=== PATIENT | male | born 1995 | race African-American/Black ===

== ENCOUNTER 2019-02-02 17:39 | Emergency (ER) | payer OTHER, SELFPAY ==
--- NOTE | 2019-02-02 20:41 | RAD REPORT ---
EXAM DESCRIPTION: US - BREAST/AXILLA, LIMITED - 02/02/2019 8:32 pm CLINICAL HISTORY: Left breast pain COMPARISON: None FINDINGS: Within the inner left breast are 2 palpable areas. 1 measures 17 millimeters and is irreg ularly shaped appearing to contain fluid. The other is lobulated 12 millimeters. It is hypoechoic IMPRESSION: Two palpable masses within the inner left breast. One measures 17 millimeters. The other 12 millimeters. Most likely these represent abscesses and should be correlated clinically. As a neoplasm can also hav e this appearance followup is recommended after treatment
--- NOTE | 2019-02-02 20:51 | ER ---
Nurse's Notes [facility] Name: Samantha Flaherty Age: 23 yrs Sex: Male : 1995 Arrival Date: 02/02/2019 Time: 17:42 Bed 7 Private MD: Diagnosis: Cutaneous abscess of other sites-left breast;Gynecomastia Presentation: 02/02 18:03 Presenting complaint: Patient states: "I have this lump on the left side of my chest sv and it has been there for a year and a half but never had time to get it checked out. It was a boil but then it went away and then it came back up." Denies fever/chills. Transition of care: patient was not received from another setting of care. Onset of symptoms is unknown. Care prior to arrival: None. 18:03 Method Of Arrival: Ambulatory sv 18:03 Acuity: DARIAN 3 sv 19:05 Risk Assessment: Do you want to hurt yourself or someone else? Patient reports no ak1 desire to harm self or others. Initial Sepsis Screen: Does the patient have a suspected source of infection? No. Patient's initial sepsis screen is negative. 21:09 Initial Sepsis Screen: Does the patient meet any 2 criteria? No. Patient's initial ak1 sepsis screen is negative. Triage Assessment: 19:05 General: Appears in no apparent distress. Behavior is calm, cooperative. ak1 Historical: - Allergies: 18:04 No Known Allergies; sv - PMHx: 18:04 Hypertension; sv - Immunization history:: Adult Immunizations unknown. - Social history:: Smoking status: unknown. - Ebola Screening: : No symptoms or risks identified at this time. Screenin:05 Abuse screen: Denies threats or abuse. Denies injuries from another. Nutritional ak1 screening: No deficits noted. Tuberculosis screening: No symptoms or risk factors identified. Fall Risk None identified. Assessment: 19:03 General: Appears in no apparent distress. Behavior is calm, cooperative. Pain: ak1 Complains of pain in left nipple. Pain: Pain does not radiate. 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 Neuro: No deficits noted. Cardiovascular: Parent/caregiver reports patient has had pt with tenderness to left breast/nipple area X2 years. no drainage noted. Respiratory: No deficits noted. GI: No signs and/or symptoms were reported involving the gastrointestinal system. : No signs and/or symptoms were reported regarding the genitourinary system. EENT: No signs and/or symptoms were reported regarding the EENT system. Derm: No signs and/or symptoms reported regarding the dermatologic system. Musculoskeletal: No signs and/or symptoms reported regarding the musculoskeletal system. Vital Signs: 18:04 BP 176 / 93; Pulse 113; Resp 18; Temp 97.6; Pulse Ox 97% ; sv 19:04 BP 166 / 97; Pulse 107; Resp 20; Pulse Ox 100% on R/A; ak1 ED Course: 17:42 Patient arrived in ED. tw3 18:04 Triage completed. sv 18:05 Arm band placed on. sv 19:02 Viviana Johnson, RN is Primary Nurse. ak1 19:05 Patient has correct armband on for positive identification. Placed in gown. Bed in low ak1 position. Call light in reach. Side rails up X 1. Pulse ox on. NIBP on. 19:05 Patient maintains SpO2 saturation greater than 95% on room air. ak1 19:18 Kaylie Cain FNP-C is PHCP. snw 19:18 Dariel Calvert MD is Attending Physician. snw 20:32 BREAST/AXILLA, LIMITED In Process Unspecified. EDMS 21:09 No provider procedures requiring assistance completed. Patient did not have IV access ak1 during this emergency room visit. Administered Medications: 21:08 Drug: Clindamycin 300 mg Route: PO; ak1 21:08 Follow up: Response: Medication administered at discharge. ak1 Outcome: 20:51 Discharge ordered by . snw 21:09 Discharged to home ambulatory, with family. ak1 21:09 Condition: good 21:09 Discharge instructions given to patient, family, Instructed on discharge instructions, follow up and referral plans. no drinking with medication, no driving heavy equipment, medication usage, Demonstrated understanding of instructions, follow-up care, medications, Prescriptions given X 2. 21:16 Patient left the ED. ak1 Signatures: Dispatcher [employer] EDMS Arabella Vasquez RN RN Kaylie Cain, STAGE DRIVER-C STAGE DRIVER-Csnw Viviana Johnson, RN RN ak1 Aure Veloz tw3 Corrections: (The following items were deleted from the chart) 18:05 18:03 Acuity: DARIAN 4 sv sv
--- NOTE | 2019-02-02 20:51 | EDPHYS ---
Physician Documentation [facility] Name: Samantha Flaherty Age: 23 yrs Sex: Male : 1995 Arrival Date: 02/02/2019 Time: 17:42 Bed 7 Private MD: ED Physician Dariel Calvert HPI: 02/02 20:02 This 23 yrs old Black Male presents to ER via Ambulatory with complaints of Pain - lump snw on left chest. 20:02 Onset: The symptoms/episode began/occurred gradually, at an unknown time. Associated snw signs and symptoms: Pertinent positives: mild tenderness to palpation. It is unknown whether or not the patient has had similar symptoms in the past. The patient has not recently seen a physician. Historical: - Allergies: 18:04 No Known Allergies; sv - PMHx: 18:04 Hypertension; sv - Immunization history:: Adult Immunizations unknown. - Social history:: Smoking status: unknown. - Ebola Screening: : No symptoms or risks identified at this time. ROS: 19:59 Constitutional: Negative for fever, chills, and weight loss, Eyes: Negative for injury, snw pain, redness, and discharge, ENT: Negative for injury, pain, and discharge, Neck: Negative for injury, pain, and swelling, Cardiovascular: Negative for chest pain, palpitations, and edema, Respiratory: Negative for shortness of breath, cough, wheezing, and pleuritic chest pain, Abdomen/GI: Negative for abdominal pain, nausea, vomiting, diarrhea, and constipation, Back: Negative for injury and pain, : Negative for injury, bleeding, discharge, and swelling, MS/Extremity: Negative for injury and deformity, Skin: Negative for injury, rash, and discoloration, Neuro: Negative for headache, weakness, numbness, tingling, and seizure, Endocrine: Negative for neck swelling, polydipsia, polyuria, polyphagia, and marked weight changes, left breast with "cyst" x 1.5 years, tender for the past 4 days. + excess wt and excess caffeine use Exam: 19:58 Constitutional: This is a well developed, well nourished patient who is awake, alert, snw and in no acute distress. Head/Face: Normocephalic, atraumatic. Eyes: Pupils equal round and reactive to light, extra-ocular motions intact. Lids and lashes normal. Conjunctiva and sclera are non-icteric and not injected. Cornea within normal limits. Periorbital areas with no swelling, redness, or edema. ENT: Nares patent. No nasal discharge, no septal abnormalities noted. Tympanic membranes are normal and external auditory canals are clear. Oropharynx with no redness, swelling, or masses, exudates, or evidence of obstruction, uvula midline. Mucous membranes moist. Neck: Trachea midline, no thyromegaly or masses palpated, and no cervical lymphadenopathy. Supple, full range of motion without nuchal rigidity, or vertebral point tenderness. No Meningismus. Cardiovascular: Regular rate and rhythm with a normal S1 and S2. No gallops, murmurs, or rubs. Normal PMI, no JVD. No pulse deficits. Respiratory: Lungs have equal breath sounds bilaterally, clear to auscultation and percussion. No rales, rhonchi or wheezes noted. No increased work of breathing, no retractions or nasal flaring. Abdomen/GI: Soft, non-tender, with normal bowel sounds. No distension or tympany. No guarding or rebound. No evidence of tenderness throughout. Back: No spinal tenderness. No costovertebral tenderness. Full range of motion. Skin: Warm, dry with normal turgor. Normal color with no rashes, no lesions, and no evidence of cellulitis. MS/ Extremity: Pulses equal, no cyanosis. Neurovascular intact. Full, normal range of motion. Neuro: Awake and alert, GCS 15, oriented to person, place, time, and situation. Cranial nerves II-XII grossly intact. Motor strength 5/5 in all extremities. Sensory grossly intact. Cerebellar exam normal. Normal gait. Psych: Awake, alert, with orientation to person, place and time. Behavior, mood, and affect are within normal limits. 19:58 Chest/axilla: Inspection: Gynecomastia bilaterally, left with 1 cm hard, mobile, mass. , Palpation: tenderness, that is mild. Vital Signs: 18:04 BP 176 / 93; Pulse 113; Resp 18; Temp 97.6; Pulse Ox 97% ; sv 19:04 BP 166 / 97; Pulse 107; Resp 20; Pulse Ox 100% on R/A; ak1 MDM: 19:51 Patient medically screened. snw 20:53 Data reviewed: vital signs, nurses notes. Data interpreted: Pulse oximetry: on room air snw is 100 %. Interpretation: normal. Counseling: I had a detailed discussion with the patient and/or guardian regarding: the historical points, exam findings, and any diagnostic results supporting the discharge/admit diagnosis, the presence of at least one elevated blood pressure reading (>120/80) during this emergency department visit, radiology results, the need for outpatient follow up, to return to the emergency department if symptoms worsen or persist or if there are any questions or concerns that arise at home. Special discussion: Based on the history and exam findings, there is no indication for further emergent testing or inpatient evaluation. I discussed with the patient/guardian the need to see the general surgeon for further evaluation of the symptoms. I discussed with the patient/guardian the need to see the primary care provider for further evaluation of the symptoms. 02/02 20:16 Order name: BREAST/AXILLA, LIMITED; Complete Time: 20:43 EDMS Administered Medications: 21:08 Drug: Clindamycin 300 mg Route: PO; ak1 21:08 Follow up: Response: Medication administered at discharge. ak1 Disposition: 02/03 06:01 Co-signature as Attending Physician, Dariel Calvert MD I agree with the assessment and tw4 plan of care. Disposition: 02/02/19 20:51 Discharged to Home. Impression: Cutaneous abscess of other sites - left breast, Gynecomastia. - Condition is Stable. - Discharge Instructions: Skin Abscess, Gynecomastia, Pediatric. - Prescriptions for Clindamycin HCl 300 mg Oral Capsule - take 1 capsule by ORAL route every 6 hours for 10 days; 40 capsule. Mobic 7.5 mg Oral Tablet - take 1 tablet by ORAL route once daily take with food; 20 tablet. - Medication Reconciliation Form, Thank You Letter, Antibiotic Education, Prescription Opioid Use form. - Follow up: Private Physician; When: 2 - 3 days; Reason: Recheck today's complaints, Continuance of care, Re-evaluation by your physician. Follow up: Emergency Department; When: As needed; Reason: Worsening of condition. Signatures: Dispatcher [employer] EDArabella Mejia RN RN sv Therrien, Shelly, HAND SPRAYER-C HAND SPRAYER-Csnw Viviana Johnson RN RN ak1 Wadley, Terrence, MD MD tw4 Corrections: (The following items were deleted from the chart) 02/02 20:16 19:56 Extrmty Nonvasular Limited+US.RAD.BRZ ordered. EDKY EDMS 21:16 20:51 02/02/2019 20:51 Discharged to Home. Impression: Cutaneous abscess of other sites ak1 - left breast; Gynecomastia. Condition is Stable. Forms are Medication Reconciliation Form, Thank You Letter, Antibiotic Education, Prescription Opioid Use. Follow up: Private Physician; When: 2 - 3 days; Reason: Recheck today's complaints, Continuance of care, Re-evaluation by your physician. Follow up: Emergency Department; When: As needed; Reason: Worsening of condition. snw
[2019-02-02] MEDS ORDERED: CLINDAMYCIN HCL 150 MG CAP ONE (21:16)
== END 2019-02-02 21:16 | disposition home or self-care (01) ==
LOC: ER 17:39
DX: N61.1 Abscess of the breast and nipple (principal); N62 Hypertrophy of breast
CPT/HCPCS: 76642; 99284

== ENCOUNTER 2019-05-18 23:18 | Emergency (ER) | payer SELFPAY ==
[2019-05-18 23:57] LABS: Absolute Lymphocytes (CBC) 4.4 K/uL (0.7-4.9); Basophils % 0.9 % (0-1.3); Hematocrit 44.7 % (39.6-49.0); Lymphocytes % 41.8 % (15.3-44.8); RBC Red Blood Cell Count 5.37 M/uL (4.33-5.43)
[2019-05-19 00:02] LABS: Protime INR 1.06
[2019-05-19 00:06] LABS: Arterial Blood Carboxyhemoglob 1.2 % (0-1.5); Blood Gas Oxyhemoglobin 94.4 % (94-97); Blood O2 Saturation 96.3 % (92-98.5)
[2019-05-19] MEDS ORDERED: NA CHLORIDE 0.9% 1,000 ML ONE (00:11)
[2019-05-19 00:23] LABS: ALT/SGPT 63 U/L (12-78); AST/SGOT 38 U/L (15-37); Albumin 4.2 g/dL (3.4-5.0); Alkaline Phosphatase 81 U/L (45-117); BUN Blood Urea Nitrogen 7 mg/dL (7-18); Bicarbonate 28 mmol/L (21-32); Bilirubin Direct 0.1 mg/dL (0-0.2); Bilirubin Total 0.5 mg/dL (0.2-1.0); Glucose Level 95 mg/dL (74-106); Lipase 52 U/L (73-393); Magnesium 2.4 mg/dL (1.8-2.4); NT PRO-BNP 51 pg/mL (<125); Protein, Total 9.2 g/dL (6.4-8.2); Sodium Level 142 mmol/L (136-145); Troponin (Emerg Dept Use Only) < 0.02 ng/mL (0.0-0.045)
[2019-05-19 00:24] LABS: Potassium 2.9 mmol/L (3.5-5.1)
[2019-05-19] MEDS ORDERED: POTASSIUM 25 MEQ EFFERV TAB ONE ×2 (01:01→02:21)
--- NOTE | 2019-05-19 01:57 | ER ---
Nurse's Notes [facility] Name: Samantha Flaherty Age: 23 yrs Sex: Male : 1995 Arrival Date: 05/18/2019 Time: 23:18 Bed 4 Private MD: Diagnosis: Dyspnea;Essential (primary) hypertension;Hypokalemia Presentation: 05/18 23:29 Presenting complaint: Patient states: SOB intermittent X1.5 years. pt stated "episodes fc only last 2 minuets or so but tonight it has been longer" pt stated if he applies pressure to center of chest it is easier to breath. Transition of care: patient was not received from another setting of care. Onset of symptoms is unknown. Risk Assessment: Do you want to hurt yourself or someone else? Patient reports no desire to harm self or others. Initial Sepsis Screen: Does the patient meet any 2 criteria? No. Patient's initial sepsis screen is negative. Does the patient have a suspected source of infection? No. Patient's initial sepsis screen is negative. Care prior to arrival: None. 23:29 Method Of Arrival: Ambulatory 23:29 Acuity: DARIAN 3 fc Triage Assessment: 23:31 General: Appears in no apparent distress. Behavior is calm, cooperative. fc 23:36 Respiratory: Onset: The symptoms/episode began/occurred today, the patient has mild jd3 shortness of breath. Historical: - Allergies: 23:31 No Known Allergies; fc - Home Meds: 23:31 None [Active]; fc - PMHx: 23:31 Hypertension; fc - PSHx: 23:31 None; fc - Immunization history:: Adult Immunizations up to date. - Social history:: Smoking status: Patient uses tobacco products, denies chronic smoking, but will smoke occasionally. - Family history:: not pertinent. - Ebola Screening: : No symptoms or risks identified at this time. Screenin:32 Abuse screen: Denies threats or abuse. Nutritional screening: No deficits noted. jd3 Tuberculosis screening: No symptoms or risk factors identified. Fall Risk Ambulatory Aid- None/Bed Rest/Nurse Assist (0 pts). Gait- Normal/Bed Rest/Wheelchair (0 pts) Mental Status- Oriented to own ability (0 pts). Total Chandra Fall Scale indicates No Risk (0-24 pts). Assessment: 23:31 General: Appears uncomfortable, Behavior is cooperative, appropriate for age, anxious. jd3 Pain: Denies pain. Neuro: Level of Consciousness is awake, alert, obeys commands, Oriented to person, place, time, situation. Cardiovascular: Denies chest pain, nausea, Heart tones S1 S2 present Capillary refill < 3 seconds Patient's skin is warm and dry. Rhythm is sinus tachycardia. Respiratory: Reports shortness of breath prior to arrival. Airway is patent Respiratory effort is even, unlabored, Respiratory pattern is regular, symmetrical, Breath sounds are clear bilaterally. GI: No signs and/or symptoms were reported involving the gastrointestinal system. : No signs and/or symptoms were reported regarding the genitourinary system. EENT: No signs and/or symptoms were reported regarding the EENT system. Derm: Skin is intact, Skin is dry, Skin is normal, Skin temperature is warm. Musculoskeletal: Circulation, motion, and sensation intact. Range of motion: intact in all extremities. 05/19 00:08 Reassessment: Patient and/or family updated on plan of care and expected duration. Pain jd3 level reassessed. Patient is alert, oriented x 3, equal unlabored respirations, skin warm/dry/pink. awaiting results, IV fluids infusing freely/ no redness or swelling, sight intact. 01:04 Reassessment: Patient appears in no apparent distress at this time. Patient and/or jd3 family updated on plan of care and expected duration. Pain level reassessed. Patient is alert, oriented x 3, equal unlabored respirations, skin warm/dry/pink. awaiting results. Patient denies pain at this time. 02:14 Reassessment: Patient appears in no apparent distress at this time. Patient and/or jd3 family updated on plan of care and expected duration. Pain level reassessed. Patient is alert, oriented x 3, equal unlabored respirations, skin warm/dry/pink. reported understanding of discharge instructions, even and steady gait upon discharge. Vital Signs: 05/18 23:27 BP 188 / 96; Pulse 92; Resp 22; Temp 98(TE); Pulse Ox 98% on R/A; Weight 127.01 kg (R); fc Height 6 ft. 3 in. (190.50 cm); Pain 0/10; 05/19 00:07 BP 177 / 111; Pulse 105; Resp 22 S; Pulse Ox 100% on R/A; Pain 0/10; jd3 01:04 BP 161 / 84; Pulse 99; Resp 16 S; Pulse Ox 98% on R/A; jd3 02:15 BP 161 / 99; Pulse 96; Resp 17 S; Pulse Ox 100% on R/A; Pain 0/10; jd3 05/18 23:27 Body Mass Index 35.00 (127.01 kg, 190.50 cm) ED Course: 05/18 23:18 Patient arrived in ED. ds1 23:23 Jasvir Oquendo MD is Attending Physician. lashell 23:31 Triage completed. fc 23:31 Arm band placed on Patient placed in an exam room, on a stretcher, Patient notified of wait time. 23:33 Patient has correct armband on for positive identification. Placed in gown. Bed in low jd3 position. Call light in reach. Side rails up X 1. Adult w/ patient. 23:35 Garrison Mckeon RN is Primary Nurse. jd3 23:39 X-ray completed. Portable x-ray completed in exam room. Patient tolerated procedure kw well. 23:41 XRAY Chest (1 view) In Process Unspecified. EDMS 23:50 Inserted saline lock: 22 gauge in left antecubital area, using aseptic technique. Blood jd3 collected. placed by Aleena WISEMAN. 05/19 00:24 Notified ED physician of a critical lab result(s). Potassium of 2.9. 01:29 CT completed. Patient tolerated procedure well. Patient moved to CT via stretcher. Patient moved back from CT. 01:39 Urine Drug Screen Sent. lt1 01:46 CT Chest For PE Angio In Process Unspecified. EDMS 01:55 Kenan Coelho MD is Referral Physician. lashell 02:14 No provider procedures requiring assistance completed. IV discontinued, intact, jd3 bleeding controlled, No redness/swelling at site. Pressure dressing applied. Administered Medications: 05/18 23:56 Drug: NS 0.9% 1000 ml Route: IV; Rate: 1 bolus; Site: left antecubital; jd3 05/19 02:08 Follow up: Response: No adverse reaction; IV Status: Completed infusion; IV Intake: jd3 1000ml 00:46 Drug: Potassium Effervescent Tablet 50 mEq {Note: given by Aleena WISEMAN.} Route: PO; jd3 02:08 Follow up: Response: No adverse reaction jd3 02:08 Drug: Potassium Effervescent Tablet 25 mEq Route: PO; jd3 02:08 Follow up: Response: Medication administered at discharge. jd3 Intake: 02:08 IV: 1000ml; Total: 1000ml. jd3 Outcome: 01:55 Discharge ordered by . lashell 02:14 Discharged to home ambulatory, with family. jd3 02:14 Condition: stable 02:14 Discharge instructions given to patient, family, Instructed on discharge instructions, follow up and referral plans. medication usage, Demonstrated understanding of instructions, follow-up care, medications, Prescriptions given X 1. 02:15 Patient left the ED. jd3 Signatures: Dispatcher [employer] EDMS Jasvir Oquendo MD MD cha Hagler, Gianna Sandhu, RN RN Shahana Ling ds1 Milvia Dumont Jonathon, RN RN jd3 Tran, Rama 1 Corrections: (The following items were deleted from the chart) 05/18 23:37 23:33 Patient has correct armband on for positive identification. Placed in gown. Bed jd3 in low position. Call light in reach. jd3 23:39 23:31 Cardiovascular: Capillary refill < 3 seconds Patient's skin is warm and dry. jd3 Rhythm is jd3 05/19 00:06 05/18 23:31 Respiratory: Reports shortness of breath at rest Airway is patent jd3 Respiratory effort is even, unlabored, Respiratory pattern is regular, symmetrical, jd3 05/19 00:06 05/18 23:31 Cardiovascular: Capillary refill < 3 seconds Patient's skin is warm and jd3 dry. Rhythm is sinus tachycardia jd3 05/19 00:07 05/18 23:31 Respiratory: Reports shortness of breath at rest Airway is patent jd3 Respiratory effort is even, unlabored, Respiratory pattern is regular, symmetrical, Breath sounds are clear bilaterally. jd3
--- NOTE | 2019-05-19 01:58 | EDPHYS ---
Physician Documentation [facility] Name: Samantha Flaherty Age: 23 yrs Sex: Male : 1995 Arrival Date: 05/18/2019 Time: 23:18 Bed 4 Private MD: ED Physician Jasvir Oquendo HPI: 05/18 23:29 This 23 yrs old Black Male presents to ER via Unassigned with complaints of Shortness lashell Of Breath. 23:29 The patient has shortness of breath at rest, with light activity. Onset: The lashell symptoms/episode began/occurred 1 year(s) ago. Duration: The symptoms are intermittent, with no pattern. The patient's shortness of breath has no apparent modifying factors. Associated signs and symptoms: The patient has no apparent associated signs or symptoms. The patient has experienced similar episodes in the past, multiple times. Historical: - Allergies: 23:31 No Known Allergies; fc - Home Meds: 23:31 None [Active]; fc - PMHx: 23:31 Hypertension; fc - PSHx: 23:31 None; fc - Immunization history:: Adult Immunizations up to date. - Social history:: Smoking status: Patient uses tobacco products, denies chronic smoking, but will smoke occasionally. - Family history:: not pertinent. - Ebola Screening: : No symptoms or risks identified at this time. ROS: 23:29 Constitutional: Negative for fever, chills, and weight loss, Eyes: Negative for injury, lashell pain, redness, and discharge, ENT: Negative for injury, pain, and discharge, Neck: Negative for injury, pain, and swelling, Cardiovascular: Negative for chest pain, palpitations, and edema, Abdomen/GI: Negative for abdominal pain, nausea, vomiting, diarrhea, and constipation, Back: Negative for injury and pain, : Negative for injury, bleeding, discharge, and swelling, MS/Extremity: Negative for injury and deformity, Skin: Negative for injury, rash, and discoloration, Neuro: Negative for headache, weakness, numbness, tingling, and seizure, Psych: Negative for depression, anxiety, suicide ideation, homicidal ideation, and hallucinations, Allergy/Immunology: Negative for hives, rash, and allergies, Endocrine: Negative for neck swelling, polydipsia, polyuria, polyphagia, and marked weight changes, Hematologic/Lymphatic: Negative for swollen nodes, abnormal bleeding, and unusual bruising. 23:29 Respiratory: Positive for cough, shortness of breath, at rest. Exam: 23:29 Constitutional: This is a well developed, well nourished patient who is awake, alert, lashell and in no acute distress. Head/Face: Normocephalic, atraumatic. Eyes: Pupils equal round and reactive to light, extra-ocular motions intact. Lids and lashes normal. Conjunctiva and sclera are non-icteric and not injected. Cornea within normal limits. Periorbital areas with no swelling, redness, or edema. ENT: Nares patent. No nasal discharge, no septal abnormalities noted. Tympanic membranes are normal and external auditory canals are clear. Oropharynx with no redness, swelling, or masses, exudates, or evidence of obstruction, uvula midline. Mucous membranes moist. Neck: Trachea midline, no thyromegaly or masses palpated, and no cervical lymphadenopathy. Supple, full range of motion without nuchal rigidity, or vertebral point tenderness. No Meningismus. Chest/axilla: Normal chest wall appearance and motion. Nontender with no deformity. No lesions are appreciated. Cardiovascular: Regular rate and rhythm with a normal S1 and S2. No gallops, murmurs, or rubs. Normal PMI, no JVD. No pulse deficits. Respiratory: Lungs have equal breath sounds bilaterally, clear to auscultation and percussion. No rales, rhonchi or wheezes noted. No increased work of breathing, no retractions or nasal flaring. Abdomen/GI: Soft, non-tender, with normal bowel sounds. No distension or tympany. No guarding or rebound. No evidence of tenderness throughout. Back: No spinal tenderness. No costovertebral tenderness. Full range of motion. Male : Normal genitalia with no discharge or lesions. Skin: Warm, dry with normal turgor. Normal color with no rashes, no lesions, and no evidence of cellulitis. MS/ Extremity: Pulses equal, no cyanosis. Neurovascular intact. Full, normal range of motion. Neuro: Awake and alert, GCS 15, oriented to person, place, time, and situation. Cranial nerves II-XII grossly intact. Motor strength 5/5 in all extremities. Sensory grossly intact. Cerebellar exam normal. Normal gait. Psych: Awake, alert, with orientation to person, place and time. Behavior, mood, and affect are within normal limits. 23:31 Musculoskeletal/extremity: DVT Exam: No signs of deep vein thrombosis. no pain, no lashell swelling, no tenderness, negative Homans' sign noted on exam, no appreciated bluish discoloration, no erythema, no increased warmth. Vital Signs: 23:27 BP 188 / 96; Pulse 92; Resp 22; Temp 98(TE); Pulse Ox 98% on R/A; Weight 127.01 kg (R); fc Height 6 ft. 3 in. (190.50 cm); Pain 0/10; 05/19 00:07 BP 177 / 111; Pulse 105; Resp 22 S; Pulse Ox 100% on R/A; Pain 0/10; jd3 01:04 BP 161 / 84; Pulse 99; Resp 16 S; Pulse Ox 98% on R/A; jd3 02:15 BP 161 / 99; Pulse 96; Resp 17 S; Pulse Ox 100% on R/A; Pain 0/10; jd3 05/18 23:27 Body Mass Index 35.00 (127.01 kg, 190.50 cm) fc MDM: 05/18 23:23 Patient medically screened. [facility] 23:32 Data reviewed: vital signs, nurses notes, lab test result(s), EKG, radiologic studies, [facility] CT scan, plain films. 05/18 23:29 Order name: Basic Metabolic Panel [facility] 05/18 23:29 Order name: CBC with Diff [facility] 05/18 23:29 Order name: LFT's [facility] 05/18 23:29 Order name: Magnesium; Complete Time: 00:[address] [facility] 05/18 23:29 Order name: NT PRO-BNP; Complete Time: 00:[address] [facility] 05/18 23:29 Order name: PT-INR; Complete Time: 00:[address] [facility] 05/18 23:29 Order name: Troponin (emerg Dept Use Only); Complete Time: 00:[address] [facility] 05/18 23:29 Order name: Lipase; Complete Time: 00:[address] [facility] 05/18 23:29 Order name: Acetaminophen; Complete Time: 00:[address] [facility] 05/18 23:29 Order name: ETOH Level; Complete Time: 00:[address] [facility] 05/18 23:29 Order name: Ptt, Activated; Complete Time: 00:[address] [facility] 05/18 23:29 Order name: Salicylate; Complete Time: 01:[address] [facility] 05/18 23:29 Order name: Urine Drug Screen [facility] 05/18 23:29 Order name: ABG; Complete Time: 00:[address] [facility] 05/18 23:29 Order name: XRAY Chest (1 view) [facility] 05/18 23:29 Order name: EKG; Complete Time: 23:[address] [facility] 05/18 23:29 Order name: Cardiac monitoring; Complete Time: 23:[address] [facility] 05/18 23:29 Order name: EKG - Nurse/Tech; Complete Time: 23:[address] [facility] 05/18 23:29 Order name: IV Saline Lock; Complete Time: 23:[address] [facility] 05/18 23:29 Order name: Labs collected and sent; Complete Time: 23:[address] [facility] 05/18 23:29 Order name: O2 Per Protocol; Complete Time: 23:[address] [facility] 05/18 23:29 Order name: O2 Sat Monitoring; Complete Time: 23:[address] [facility] 05/18 23:29 Order name: CT Chest For PE Angio [facility] 05/18 23:31 Order name: Basic Metabolic Panel; Complete Time: 00:40 [facility] 05/18 23:31 Order name: CBC with Automated Diff; Complete Time: 00:21 [facility] 05/18 23:31 Order name: Liver (Hepatic) Function; Complete Time: 00:40 [facility] 05/19 01:40 Order name: Urine Dipstick--Ancillary (enter results) [facility] 05/18 23:29 Order name: Urine Dipstick-Ancillary (obtain specimen); Complete Time: 01:[address] [facility] 05/19 00:41 Order name: PO challenge: juice x 1; Complete Time: 00:[address] [facility] 05/19 01:55 Order name: PO challenge: juice; Complete Time: 02:[address] [facility] Administered Medications: 23:56 Drug: NS 0.9% 1000 ml Route: IV; Rate: 1 bolus; Site: left antecubital; [facility] 05/19 02:08 Follow up: Response: No adverse reaction; IV Status: Completed infusion; IV Intake: jd3 1000ml 00:46 Drug: Potassium Effervescent Tablet 50 mEq {Note: given by Aleena TILLMAN} Route: PO; jd3 02:08 Follow up: Response: No adverse reaction jd3 02:08 Drug: Potassium Effervescent Tablet 25 mEq Route: PO; jd3 02:08 Follow up: Response: Medication administered at discharge. jd3 Disposition: 05/19/19 01:55 Discharged to Home. Impression: Dyspnea, Essential (primary) hypertension, Hypokalemia. - Condition is Stable. - Discharge Instructions: Potassium Content of Foods, Hypertension, Hypertension, [id number], How to Take Your Blood Pressure, [id number], Aspirin and Your Heart, Hypokalemia, Managing Your Hypertension. - Prescriptions for Norvasc 5 mg Oral Tablet - take 1 tablet by ORAL route once daily; 20 tablet. - Medication Reconciliation Form, Thank You Letter, Antibiotic Education, Prescription Opioid Use form. - Work release form (05/19/19 22:04). fc - Family Work Release (05/19/19 21:58). ds1 - Follow up: Private Physician; When: 2 - 3 days; Reason: Recheck today's complaints, Re-evaluation by your physician. Follow up: Kenan Coelho; When: 2 - 3 days; Reason: Recheck today's complaints, Re-evaluation by your physician. - Problem is new. - Symptoms have improved. Signatures: Dispatcher [employer] EDWI Jasvir Oquendo MD MD cha Chretien, Felicia RN RN Garrison Morrison RN RN jd3 Sanford, Demi ds1 Corrections: (The following items were deleted from the chart) 02:15 01:55 05/19/2019 01:55 Discharged to Home. Impression: Dyspnea; Essential (primary) jd3 hypertension; Hypokalemia. Condition is Stable. Discharge Instructions: Hypertension, Hypertension, [id number], How to Take Your Blood Pressure, [id number], Aspirin and Your Heart, Managing Your Hypertension, Potassium Content of Foods, Hypokalemia. Prescriptions for Norvasc 5 mg Oral Tablet - take 1 tablet by ORAL route once daily; 20 tablet. and Forms are Medication Reconciliation Form, Thank You Letter, Antibiotic Education, Prescription Opioid Use. Follow up: Private Physician; When: 2 - 3 days; Reason: Recheck today's complaints, Re-evaluation by your physician. Follow up: Kenan Coelho; When: 2 - 3 days; Reason: Recheck today's complaints, Re-evaluation by your physician. Problem is new. Symptoms have improved. lashell
[2019-05-19 02:06] LABS: Barbiturates NEGATIVE (NEGATIVE); Benzodiazepines NEGATIVE (NEGATIVE); Cocaine NEGATIVE (NEGATIVE); METHAMPHETAM NEGATIVE (NEGATIVE); Methadone NEGATIVE (NEGATIVE); Opiates NEGATIVE (NEGATIVE); Phencyclidine NEGATIVE (NEGATIVE); THC Cannibis POSITIVE (NEGATIVE)
[2019-05-19 02:20] LABS: Urine Blood TRACE (NEG); Urine Glucose NEGATIVE (NEG); Urine Protein NEGATIVE (NEG); Urine Specific Gravity 1.015 (1.005-1.030)
--- NOTE | 2019-05-19 06:41 | EKG ---
Test Date: 2019-05-18 Test Time: 23:38:58 [employer]: FRAN MEASUREMENT RESULTS: Intervals: Rate: 105 WV: 142 QRSD: 84 QT: 344 QTc: 454 Tiro: P: 58 WV: 142 QRS: 92 T: -9 INTERPRETIVE STATEMENTS: Sinus tachycardia Rightward axis T wave abnormality, consider inferior ischemia Abnormal ECG Compared to ECG 06/05/2011 08:45:18 Right-axis deviation now present T-wave abnormality now present Possible ischemia now present Sinus rhythm no longer present Atrial abnormality no longer present Left ventricular hypertrophy no longer present Electronically Signed On 05-19-19 06:41:17 CDT by Kenan Coelho
--- NOTE | 2019-05-19 08:35 | RAD REPORT ---
EXAM DESCRIPTION: Joao Single View05/18/2019 11:42 pm CLINICAL HISTORY: Chest pain COMPARISON: none FINDINGS: The lungs appear clear of acute infiltrate. The heart is mildly enlarged IMPRESSION: No acute abnormalities displayed
--- NOTE | 2019-05-19 09:32 | RAD REPORT ---
EXAM DESCRIPTION: CT - Chest For Pe Angio - 05/19/2019 5:54 am CLINICAL HISTORY: DYSPNEA COMPARISON: None. TECHNIQUE: CT CHEST ANGIOGRAPHY WITH IV CONTRAST on 05/18/2019 11:29 PM CDT. MIPS reconstructions wer e generated. This exam was performed according to our departmental dose-optimization program, which includes autom ated exposure control, adjustment of the mA and/or kV according to patient size and/or use of iterati ve reconstruction technique. MIP images were generated. FINDINGS: Thoracic aorta is normal in course and caliber without aneurysm or dissection. Pulmonary a rteries are adequately opacified without acute or chronic filling defects. The heart is normal in size. There is no pericardial effusion. Intrathoracic lymph nodes are not enla rged. There is no pleural effusion, pleural thickening or pneumothorax. Central airways are patent. Lungs a re clear with no consolidation, mass or interstitial lung disease. Liver is fatty in attenuation. There are no acute osseous findings. No suspicious bony lesions. IMPRESSION: No aortic dissection or aneurysm. No large or central pulmonary embolus. No pneumonia. Electronically signed by: Barry Flores MD 05/19/2019 1:48 AM CDT Due to temporary technical issues with the PACS/Fluency reporting system, reports are being signed by the in house radiologist as a courtesy to ensure prompt reporting. The interpreting radiologist is f joselinly responsible for the content of the report.
== END 2019-05-19 02:15 | disposition home or self-care (01) ==
LOC: ER 23:18
DX: R06.00 Dyspnea, unspecified (principal); E87.6 Hypokalemia; I10 Essential (primary) hypertension; Z72.0 Tobacco use
CPT/HCPCS: 36415; 71045; 71275; 80048; 80076; 80307; 80320; 80329; 81003; 82805; 83690; 83735; 83880; 84484; 85025; 85610; 85730; 93005; 96360; 96361; 99285; Q9967